=== PATIENT | male | born 1965 | race Caucasian/White ===

== ENCOUNTER 2022-03-19 13:21 | Inpatient (IN) | payer OTHER ==
[2022-03-19 13:47] VITALS: BMI 28.7
[2022-03-19] MEDS ORDERED: SODIUM CHLORIDE 0.9% 500 ML INFUS.BAG IV ONE ×2 (14:08→16:10)
[2022-03-19] MEDS ORDERED: ONDANSETRON 4 MG/2 ML VIAL IVPUSH ONE (14:46)
[2022-03-19 14:53] LABS: VENOUS BASE EXCESS -2.1 mmol/L (-2-2); VENOUS O2 SATURATION 93.4 % (70-80); VENOUS PCO2 42.4 mmHg (38-52); VENOUS PH 7.359 (7.310-7.410)
[2022-03-19 14:56] LABS: BASO % 0.6 % (0-2.0); EOS % 2.1 % (0-4.5); HEMOGLOBIN 14.1 GM/dL (11.7-16.9); LYMPH % 33.3 % (8-40); MCH 30.7 pg (25.7-33.7); MCHC 33.5 g/dl (32.0-35.9); MEAN CELL VOLUME 91.6 fl (80-96); MEAN PLT VOLUME 9.6 fl (7.5-11.1); PLATELET COUNT 96 10^3/uL (134-434); RBC 4.59 M/mm3 (4.00-5.60); RDW 14.2 % (11.9-15.9); WHITE BLOOD COUNT 4.6 K/mm3 (4.0-10.0)
[2022-03-19 15:03] LABS: INR 1.02 (0.83-1.09); PROTHROMBIN TIME (PATIENT) 11.7 SEC (9.7-13.0)
[2022-03-19 15:05] LABS: ACTIVATED PTT 31.2 SECONDS (25.2-36.5)
[2022-03-19] MEDS ORDERED: ONDANSETRON 4 MG/2 ML VIAL ONE (15:10)
[2022-03-19 15:13] LABS: ALBUMIN 3.1 g/dl (3.4-5.0); BLOOD UREA NITROGEN 26.5 mg/dL (7-18); CALCIUM 8.5 mg/dL (8.5-10.1)
[2022-03-19 15:16] LABS: CREATININE 1.9 mg/dL (0.55-1.3)
[2022-03-19 15:18] LABS: BILIRUBIN,TOTAL 0.6 mg/dL (0.2-1); TOT PROT 6.1 g/dl (6.4-8.2)
[2022-03-19 16:06] LABS: MAGNESIUM 1.5 mg/dL (1.8-2.4)
[2022-03-19 16:09] LABS: PHOSPHOROUS 3.4 mg/dL (2.5-4.9)
[2022-03-19] MEDS ORDERED: POTASSIUM CHLORIDE TABS 20 MEQ TABLET.ER (FP) PO ONE (16:12)
[2022-03-19] MEDS ORDERED: MAGNESIUM SULF 50% (8.12 MEQ/2 ML-1 GM VIAL) IVPB ONE (16:14)
[2022-03-19] MEDS ORDERED: KCL 10 MEQ IVPB 10 MEQ/100 ML INFUS.BAG IVPB SCH (16:15)
[2022-03-19] MEDS ORDERED: KCL 10 MEQ IVPB 10 MEQ/100 ML INFUS.BAG IVPB ONE (16:20)
[2022-03-19] MEDS ORDERED: POTASSIUM CHLORIDE ORAL LIQUID 20 MEQ/15 ML ONE (16:20)
[2022-03-19] MEDS ORDERED: MAGNESIUM 1GM/D5W - 1 GM/100 ML IVPB IVPB ONE (16:20)
[2022-03-19 17:20] LABS: PH,URINE 5.5 (5.0-8.0); URINE APPEARANCE CLEAR; URINE BILIRUBIN NEGATIVE (NEGATIVE); URINE COLOR YELLOW; URINE GLUCOSE (UA) NEGATIVE (NEGATIVE); URINE KETONE NEGATIVE (NEGATIVE); URINE LEUK ESTERASE NEGATIVE (NEGATIVE); URINE NITRITE NEGATIVE (NEGATIVE); URINE PROTEIN TRACE (NEGATIVE)
[2022-03-19] MEDS ORDERED: LORazepam 2 MG/ML SDV VIAL IVPUSH PRN (20:58)
[2022-03-19] MEDS ORDERED: FOLIC ACID 1 MG TABLET (FP) ONE (21:12)
[2022-03-19] MEDS ORDERED: THIAMINE HCL 200 MG/2 ML VIAL ONE (21:12)
[2022-03-19] MEDS ORDERED: HEPARIN NA (PORCINE) 5,000 UNITS/ML 1ML VIAL ONE (21:12)
[2022-03-19] MEDS: SODIUM CHLORIDE 1,000 ML IV SCH (21:21)
[2022-03-19] MEDS: FOLIC ACID 1 MG TABLET (FP) PO SCH (21:21)
[2022-03-19] MEDS: THIAMINE HCL 200 MG/2 ML VIAL IVPB SCH (21:22)
[2022-03-19] MEDS: HEPARIN NA (PORCINE) 5,000 UNITS/ML 1ML VIAL SQ SCH (21:22)
[2022-03-19 23:24] LABS: BLOOD UREA NITROGEN 18.7 mg/dL (7-18)
[2022-03-19 23:27] LABS: CREATININE 1.1 mg/dL (0.55-1.3)
[2022-03-20] MEDS: diazePAM 5 MG TABLET PO SCH ×5 (00:19→22:41)
[2022-03-20] MEDS: HEPARIN NA (PORCINE) 5,000 UNITS/ML 1ML VIAL SQ SCH ×2 (06:52→06:53)
[2022-03-20] MEDS: SODIUM CHLORIDE 1,000 ML IV SCH ×2 (06:53→18:34)
[2022-03-20 07:57] LABS: BASO % 0.2 % (0-2.0); EOS % 1.2 % (0-4.5); HEMATOCRIT 42.9 % (35.4-49); HEMOGLOBIN 14.3 GM/dL (11.7-16.9); MCH 30.9 pg (25.7-33.7); MCHC 33.5 g/dl (32.0-35.9); MEAN CELL VOLUME 92.2 fl (80-96); MEAN PLT VOLUME 9.8 fl (7.5-11.1); MONO % 14.4 % (3.8-10.2); NEUT % 65.2 % (42.8-82.8); PLATELET COUNT 62 10^3/uL (134-434); RBC 4.65 M/mm3 (4.00-5.60); RDW 13.9 % (11.9-15.9); WHITE BLOOD COUNT 4.1 K/mm3 (4.0-10.0)
[2022-03-20 08:19] LABS: CALCIUM 8.1 mg/dL (8.5-10.1)
[2022-03-20 08:20] LABS: ALBUMIN 3.3 g/dl (3.4-5.0); BLOOD UREA NITROGEN 12.3 mg/dL (7-18); MAGNESIUM 1.1 mg/dL (1.8-2.4)
[2022-03-20 08:23] LABS: CREATININE 0.8 mg/dL (0.55-1.3); PHOSPHOROUS 1.4 mg/dL (2.5-4.9)
[2022-03-20 08:25] LABS: BILIRUBIN,TOTAL 1.3 mg/dL (0.2-1); TOT PROT 6.4 g/dl (6.4-8.2)
[2022-03-20] MEDS ORDERED: MAGNESIUM SULF 50% (8.12 MEQ/2 ML-1 GM VIAL) IVPB ONE (08:33)
[2022-03-20] MEDS ORDERED: SODIUM PHOSPHATE - 30 MM in SODIUM CHLORIDE 500 ML IVPB ONE (08:33)
[2022-03-20] MEDS: NAPH,MB-DB/K PH,MBDB POWDER PACKET PO SCH (09:56)
[2022-03-20 10:15] LABS: OPIATES, URI NEGATIVE (NEGATIVE)
[2022-03-20 10:16] LABS: COCAINE, UR NEGATIVE (NEGATIVE); PHENCYCLIDINE,URINE NEGATIVE (NEGATIVE); URINE BENZODIAZEPINES NEGATIVE (NEGATIVE)
[2022-03-20 10:23] LABS: METHADONE, UR NEGATIVE (NEGATIVE); URINE AMPHETAMINES NEGATIVE (NEGATIVE); URINE BARBITURATES NEGATIVE (NEGATIVE)
[2022-03-20] MEDS: PANTOPRAZOLE SODIUM 40 MG VIAL IVPUSH SCH (11:42)
[2022-03-20] MEDS: NICOTINE 21 MG/24 HOURS TOPICAL PATCH TD SCH (11:42)
[2022-03-20] MEDS: FOLIC ACID 1 MG TABLET (FP) PO SCH (11:43)
[2022-03-20] MEDS: THIAMINE HCL 200 MG/2 ML VIAL IVPB SCH (11:43)
[2022-03-20 12:58] LABS: HIV INTERPRETATION NEGATIVE (NEGATIVE)
[2022-03-21] MEDS: SODIUM CHLORIDE 1,000 ML IV SCH ×3 (00:27→12:37)
[2022-03-21] MEDS: diazePAM 5 MG TABLET PO PRN ×2 (02:19→22:05)
[2022-03-21] MEDS: diazePAM 5 MG TABLET PO SCH ×3 (05:39→22:05)
[2022-03-21] MEDS: PANTOPRAZOLE SODIUM 40 MG VIAL IVPUSH SCH (10:30)
[2022-03-21] MEDS: NAPH,MB-DB/K PH,MBDB POWDER PACKET PO SCH (10:30)
[2022-03-21] MEDS: THIAMINE HCL 200 MG/2 ML VIAL IVPB SCH (10:30)
[2022-03-21] MEDS: NICOTINE 21 MG/24 HOURS TOPICAL PATCH TD SCH (10:30)
[2022-03-21] MEDS: FOLIC ACID 1 MG TABLET (FP) PO SCH (10:30)
[2022-03-21 10:38] LABS: BASO % 0.6 % (0-2.0); EOS % 1.7 % (0-4.5); HEMATOCRIT 44.9 % (35.4-49); HEMOGLOBIN 15.4 GM/dL (11.7-16.9); LYMPH % 16.1 % (8-40); MCH 31.4 pg (25.7-33.7); MCHC 34.3 g/dl (32.0-35.9); MEAN CELL VOLUME 91.5 fl (80-96); MONO % 14.2 % (3.8-10.2); NEUT % 67.4 % (42.8-82.8); PLATELET COUNT 87 10^3/uL (134-434); RBC 4.91 M/mm3 (4.00-5.60); RDW 13.4 % (11.9-15.9); WHITE BLOOD COUNT 5.6 K/mm3 (4.0-10.0)
[2022-03-21 10:57] LABS: ALBUMIN 3.7 g/dl (3.4-5.0); CREATININE 0.9 mg/dL (0.55-1.3)
[2022-03-21 10:58] LABS: BLOOD UREA NITROGEN 10.9 mg/dL (7-18); CALCIUM 8.1 mg/dL (8.5-10.1); MAGNESIUM 1.4 mg/dL (1.8-2.4)
[2022-03-21 11:00] LABS: PHOSPHOROUS 1.3 mg/dL (2.5-4.9)
[2022-03-21 11:01] LABS: BILIRUBIN,TOTAL 2.5 mg/dL (0.2-1); TOT PROT 7.3 g/dl (6.4-8.2)
[2022-03-21] MEDS ORDERED: MAGNESIUM SULF 50% (8.12 MEQ/2 ML-1 GM VIAL) IVPB ONE (12:30)
[2022-03-21 12:49] LABS: INR 1.11 (0.83-1.09); PROTHROMBIN TIME (PATIENT) 12.8 SEC (9.7-13.0)
[2022-03-21] MEDS ORDERED: SODIUM PHOSPHATE - 30 MM in SODIUM CHLORIDE 250 ML IVPB ONE (18:42)
[2022-03-21] MEDS ORDERED: SODIUM PHOSPHATE - 30 MM in SODIUM CHLORIDE 500 ML IVPB ONE (20:15)
[2022-03-21] MEDS ORDERED: NAPH,MB-DB/K PH,MBDB POWDER PACKET PO SCH (22:00)
[2022-03-22] MEDS: diazePAM 5 MG TABLET PO SCH ×2 (05:29→17:08)
[2022-03-22] MEDS ORDERED: MAGNESIUM OXIDE 400 MG TABLET (FP) PO ONE (08:01)
[2022-03-22 09:05] LABS: HEMATOCRIT 42.8 % (35.4-49); HEMOGLOBIN 14.6 GM/dL (11.7-16.9); MCH 31.5 pg (25.7-33.7); MCHC 34.1 g/dl (32.0-35.9); MEAN CELL VOLUME 92.2 fl (80-96); MEAN PLT VOLUME 9.8 fl (7.5-11.1); PLATELET COUNT 84 10^3/uL (134-434); RBC 4.64 M/mm3 (4.00-5.60); RDW 13.4 % (11.9-15.9); WHITE BLOOD COUNT 4.5 K/mm3 (4.0-10.0)
[2022-03-22 09:15] LABS: ALBUMIN 3.5 g/dl (3.4-5.0); CALCIUM 8.4 mg/dL (8.5-10.1); MAGNESIUM 1.7 mg/dL (1.8-2.4)
[2022-03-22 09:18] LABS: CREATININE 0.8 mg/dL (0.55-1.3); PHOSPHOROUS 2.2 mg/dL (2.5-4.9)
[2022-03-22 09:20] LABS: BILIRUBIN,TOTAL 1.8 mg/dL (0.2-1)
[2022-03-22] MEDS ORDERED: MAGNESIUM 2GM/50ML STERILE WATER IVPB IVPB ONE (10:30)
[2022-03-22] MEDS: THIAMINE HCL 200 MG/2 ML VIAL IVPB SCH (10:30)
[2022-03-22] MEDS: NAPH,MB-DB/K PH,MBDB POWDER PACKET PO SCH ×3 (10:30→21:48)
[2022-03-22] MEDS: NICOTINE 21 MG/24 HOURS TOPICAL PATCH TD SCH (10:30)
[2022-03-22] MEDS: PANTOPRAZOLE SODIUM 40 MG VIAL IVPUSH SCH (10:30)
[2022-03-22] MEDS: FOLIC ACID 1 MG TABLET (FP) PO SCH (10:31)
[2022-03-22] MEDS: amLODIPine BESYLATE 5 MG TABLET (FP) PO SCH (10:31)
[2022-03-22] MEDS ORDERED: SODIUM PHOSPHATE - 30 MM in SODIUM CHLORIDE 500 ML IVPB ONE (11:15)
[2022-03-23] MEDS: NAPH,MB-DB/K PH,MBDB POWDER PACKET PO SCH ×2 (05:20→14:59)
[2022-03-23] MEDS ORDERED: diazePAM 5 MG TABLET PO ONE (06:00)
[2022-03-23 07:12] VITALS: TEMP 98.2
[2022-03-23 08:31] LABS: HEMATOCRIT 42.2 % (35.4-49); MCH 30.8 pg (25.7-33.7); MCHC 33.2 g/dl (32.0-35.9); MEAN CELL VOLUME 92.6 fl (80-96); MEAN PLT VOLUME 9.5 fl (7.5-11.1); PLATELET COUNT 87 10^3/uL (134-434); RBC 4.56 M/mm3 (4.00-5.60); RDW 13.8 % (11.9-15.9); WHITE BLOOD COUNT 3.6 K/mm3 (4.0-10.0)
[2022-03-23 09:00] LABS: ALBUMIN 3.2 g/dl (3.4-5.0); BLOOD UREA NITROGEN 10.3 mg/dL (7-18); CALCIUM 8.5 mg/dL (8.5-10.1); MAGNESIUM 1.6 mg/dL (1.8-2.4)
[2022-03-23 09:03] LABS: CREATININE 0.9 mg/dL (0.55-1.3); PHOSPHOROUS 3.1 mg/dL (2.5-4.9)
[2022-03-23 09:05] LABS: BILIRUBIN,TOTAL 1.4 mg/dL (0.2-1); TOT PROT 6.4 g/dl (6.4-8.2)
[2022-03-23] MEDS ORDERED: MAGNESIUM SULF 50% (8.12 MEQ/2 ML-1 GM VIAL) IVPB ONE (09:15)
[2022-03-23 10:59] VITALS: BP 139/95; PULSE 86; RESP 20
[2022-03-23] MEDS: amLODIPine BESYLATE 5 MG TABLET (FP) PO SCH (11:00)
[2022-03-23] MEDS: FOLIC ACID 1 MG TABLET (FP) PO SCH (11:00)
[2022-03-23] MEDS: NICOTINE 21 MG/24 HOURS TOPICAL PATCH TD SCH (11:00)
[2022-03-23] MEDS: PANTOPRAZOLE SODIUM 40 MG VIAL IVPUSH SCH (11:00)
[2022-03-23] MEDS: THIAMINE HCL 200 MG/2 ML VIAL IVPB SCH (11:01)
== END 2022-03-23 15:44 | disposition home or self-care (01) | DRG 469 ==
LOC: JER 13:21 → JERBED 16:01 → OBSVTOIN 21:00 → J7W 23:44
PROVIDERS: ADMIT Internal Medicine; ATTEND Internal Medicine
DX: N17.9 Acute kidney failure, unspecified (principal); I95.9 Hypotension, unspecified; M62.82 Rhabdomyolysis; E83.39 Other disorders of phosphorus metabolism; E83.42 Hypomagnesemia; E87.6 Hypokalemia; F10.239 Alcohol dependence with withdrawal, unspecified; F17.210 Nicotine dependence, cigarettes, uncomplicated; D69.6 Thrombocytopenia, unspecified
CPT/HCPCS: 0241U-QW; 36415; 70450-TC; 71045-TC-FY; 72125-TC; 76705-TC; 80048; 80053; 80307; 81003; 82550; 82553; 82570; 82803; 83605; 83735; 83935; 84100; 84300; 84484; 85025; 85027; 85379; 85610; 85730; 87040; 87086; 87389; 93005; 93010; 99285-25; G0378; J1644